=== PATIENT | male | born 1985 | race Caucasian/White ===

== ENCOUNTER 2020-04-02 16:13 | Outpatient (CLI) | payer OTHER ==
[2020-04-02] MEDS ORDERED: GADOBUTROL 10 MMOL/10 ML VIAL ONE (16:53)
[2020-04-02] MEDS ORDERED: GADOBUTROL 10 MMOL/10 ML VIAL IVP ONE (17:20)
--- NOTE | 2020-04-02 17:49 | MRI Report ---
PROCEDURE: Brain W/WO INDICATIONS: HEADACHE CONTRAST: IV CONTRAST: Gadavist ml: 8.5 TECHNIQUE: Noncontrast axial T1 spin echo, axial T2 fast spin echo, sagittal and axial FLAIR, coronal T2 fast sp in echo, axial gradient echo, axial diffusion and ADC through the brain. After the administration of contrast, axial and coronal T1 spin echo with fat saturation through the brain. COMPARISON: None. FINDINGS: Image quality: Excellent. CSF spaces: Basal cisterns are patent. No extra-axial fluid collections. Ventricles are normal in size and shape. Brain: No midline shift. No intracranial bleeds or masses. No abnormal intracranial enhancement. There is cerebral volume loss for age. There is periventricular white matter chronic small vessel is chemic change. The brainstem appears normal. Diffusion-weighted images demonstrate no acute ischemi c insults. No chronic ischemic insults. Normal intravascular flow voids are present. Skull and face: Calvarial marrow is normal in signal. Orbits appear normal. Sinuses: Sinuses and mastoids appear clear. 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 IMPRESSION: A cause of headache cannot be seen on these images. No masses or abnormal enhancement can be seen. No hydrocephalus is seen. No brain edema. Reviewed by: Gonsalo Greenberg MD on 04/02/2020 4:47 PM [place] Approved by: Gonsalo Greenberg MD on 04/02/2020 4:47 PM [facility] Station ID: [id number]
== END 2020-04-02 16:14 | disposition home or self-care (01) ==
LOC: DI 16:13
PROVIDERS: ATTEND Student in an Organized Health Care Education/Training Program
DX: R51.9 Headache, unspecified (principal)
CPT/HCPCS: 70553; A9585